=== PATIENT | female | born 1975 | race American Indian/Alaskan Native ===

== ENCOUNTER 2020-07-12 09:18 | Emergency (ER) | payer OTHER ==
[2020-07-12 09:27] VITALS: BP 150/94
--- NOTE | 2020-07-12 09:36 | Event Note ---
ED Screening Note ED Screening Note: LOCAL REACTION TO EAR RING ABC INTACT VSS This initial assessment/diagnostic orders/clinical plan/treatment(s) is/are subject to change based on patients health status, clinical progression and re- assessment by fellow clinical providers in the ED. Further treatment and workup at subsequent clinical providers discretion. Patient/guardian urged not to elope from the ED as their condition may be serious if not clinically assessed and managed. Initial orders include:
[2020-07-12] MEDS ORDERED: dexAMETHasone 4 MG/ML VIAL IM ONE (10:28)
--- NOTE | 2020-07-12 10:28 | Emergency Department Report ---
ED Rash HPI - HPI Chief Complaint: Skin/Abscess/Foreign Body Stated Complaint: ALLERGIC REACTION Time Seen by Provider: 07/12/20 09:35 Duration: Today Location: Other Suspected Cause: Other Rash Symptoms: No Itching, No Facial Swelling, No Tongue/Oral Swelling, No Breathing Difficulties, No Choking Sensation, No Wheezing/Dyspnea, No Peeling, No Blistering, No Fever, No Lightheaded, No Malaise, No Myalgias Severity: mild Other History: 45 yo comes to er with left ear tragus swelling after wearing a "cheap" earring. The ear is swollen and blistering. vss. abc intact. no fever. no chills. no anai. Ambulatory and NAD on arrival to ER ED Review of Systems ROS: Stated complaint: ALLERGIC REACTION Other details as noted in HPI Comment: All other systems reviewed and negative ED Past Medical Hx - Past Medical History Previous Medical History?: No - Surgical History Past Surgical History?: No - Medications Home Medications: Home Medications Medication Instructions Recorded Confirmed Last Taken Type cephALEXin [Keflex] 500 mg PO Q12HR #20 cap 07/12/20 Unknown Rx predniSONE [Deltasone] 20 mg PO DAILY #5 tablet 07/12/20 Unknown Rx Rash Exam - Exam General: Vital signs noted. No distress. Alert and acting appropriately. l ear tragus, swollen, red and with 1 blister after wearing cheap ear rings Only involving 1 ear no bite or trauma to ear TM WNL mild preauricular lymphadenopathy vss abc intact taking po HEENT: No Periorbital Edema, No Conjuctival Injection, No Chemosis, No Perioral Edema, No Tongue Edema, No Uvular Edema, No Compromised Airway, No Drooling Lungs: Yes Good Air Exchange (Normal Breath Sounds), No Wheezes, No Ronchi, No Stridor, No Cough, No Labored Respirations, No Retractions, No Use of Accessory Muscles, No Other Abnormal Lung Sounds Heart: Yes Regular, No Murmur Other: Positive: Abdomen Normal, Neurologic Normal, Musculoskeletal Normal ED Course Vital Signs 07/12/20 09:26 Temperature 98.1 F Pulse Rate 71 Respiratory 18 Rate Blood Pressure 150/94 O2 Sat by Pulse 100 Oximetry ED Medical Decision Making - Medical Decision Making Vital Signs 07/12/20 09:26 Temperature 98.1 F Pulse Rate 71 Respiratory 18 Rate Blood Pressure 150/94 O2 Sat by Pulse 100 Oximetry Pt thinks this is related to ear ring but only 1 ear involved no trauma to ear medicated with decadron for swelling dc home with rx for cellulitis and med for inflammation. Pt verbalizes understanding of dc plan of care including meds and followup. - Differential Diagnosis allergic rx to ear ring/cellulitic response to ? etio of l ear only Critical care attestation.: If time is entered above; I have spent that time in minutes in the direct care of this critically ill patient, excluding procedure time. ED Disposition Clinical Impression: Allergic reaction, Cellulitis Disposition: DC-01 TO HOME OR SELFCARE Is pt being admited?: No Does the pt Need Aspirin: No Condition: Stable Instructions: Cellulitis, Adult Additional Instructions: meds as ordered follow up with pcp referral below willie english to take Prescriptions: predniSONE [Deltasone] 20 mg PO DAILY #5 tablet cephALEXin [Keflex] 500 mg PO Q12HR #20 cap Referrals: ALEAH BEY MD [Primary Care Provider] - 3-5 Days SRI JAMIL MD [Staff Physician] - 3-5 Days Time of Disposition: 10:27
== END 2020-07-12 10:30 | disposition home or self-care (01) ==
LOC: ED 09:18
DX: T78.40XA Allergy, unspecified, initial encounter (principal); H60.12 Cellulitis of left external ear; Z79.899 Other long term (current) drug therapy; X58.XXXA Exposure to other specified factors, initial encounter
CPT/HCPCS: 96372; 99281; J1100